=== PATIENT | female | born 1980 | race Caucasian/White ===

== ENCOUNTER 2017-05-25 20:47 | Emergency (ER) | payer MEDICAID ==
[~2017-05-25] VITALS: Ht 162.6 cm; Wt 68.0 kg
[2017-05-25] MEDS ORDERED: ONDANSETRON HCL 4MG/2ML VIAL IV STA (20:58)
[2017-05-25] MEDS ORDERED: SODIUM CHLORIDE 0.9% 1,000 ML IV ONE (20:58)
[2017-05-25] MEDS ORDERED: MECLIZINE 25MG TABLET PO ONE (21:00)
[2017-05-25 21:46] LABS: BASOPHILS % 0.6 % (0.0-2.0); EOSINOPHILS % 4.4 % (0.0-5.0); HEMATOCRIT. 39.5 % (36.0-48.0); LYMPHOCYTES % 29.1 % (20.0-50.0); MEAN CORPUSCULAR HEMOGLOBIN 31.8 pg (28.0-32.0); MEAN CORPUSCULAR VOLUME 89.6 fL (81.0-99.0); MEAN PLATELET VOLUME 8.3 fl (7.4-10.4); MONOCYTES % 5.3 % (2.0-8.0); NEUTROPHILS % 60.6 % (40.0-76.0); PLATELET 238 x1000/uL (130-400); RED BLOOD CELL COUNT 4.41 mill/uL (4.2-5.4); RED CELL DISTRIBUTION WIDTH 12.4 % (11.6-14.6)
[2017-05-25 21:49] LABS: CHLORIDE 108 mEq/L (98-107)
[2017-05-25 21:50] LABS: INR 1.1; PROTHROMBIN TIME 11.4 sec (9.4-11.6)
[2017-05-25 21:59] LABS: CARBON DIOXIDE 24 mEq/L (21-32); ETHANOL BLOOD < 10 mg/dL
[2017-05-25 23:02] LABS: CLARITY URINE CLEAR (CLEAR); COLOR URINE YELLOW (YELLOW); KETONES URINE NEGATIVE (NEGATIVE); LEUKOCYTE ESTERASE URINE 1+ (NEGATIVE); NITRITE URINE NEGATIVE (NEGATIVE); OCCULT BLOOD URINE NEGATIVE (NEGATIVE); PROTEIN URINE NEGATIVE (NEGATIVE); SPECIFIC GRAVITY URINE 1.013 (1.005-1.030)
[2017-05-25 23:10] LABS: *AMPHETAMINES SCREEN URINE NEGATIVE (NEGATIVE); *BARBITURATES SCREEN URINE NEGATIVE (NEGATIVE); *BENZODIAZEPINES SCREEN URINE NEGATIVE (NEGATIVE); *COCAINE SCREEN URINE NEGATIVE (NEGATIVE); CANNABINOID URINE SCREEN NEGATIVE (NEGATIVE); METHADONE URINE SCREEN NEGATIVE (NEGATIVE); OPIATES URINE SCREEN NEGATIVE (NEGATIVE); PHENCYCLIDINE URINE SCREEN NEGATIVE (NEGATIVE)
[2017-05-26 01:25] VITALS: BP 132/88
== END 2017-05-26 01:27 | disposition home or self-care (01) ==
LOC: ER 20:57
DX: G93.49 Other encephalopathy (principal); R42 Dizziness and giddiness; N30.00 Acute cystitis without hematuria; R03.0 Elevated blood-pressure reading, without diagnosis of hypertension; E78.00 Pure hypercholesterolemia, unspecified
CPT/HCPCS: 36415; 70450; 80053; 80305; 80307; 80329; 81001; 81025; 85025; 85610; 93005; 96361; 96374; 99285; G0482; J2405; J7030; Z7610; J8597

== ENCOUNTER 2018-08-17 13:18 | Emergency (ER) | payer MEDICAID ==
[~2018-08-17] VITALS: Ht 157.5 cm; Wt 66.0 kg
[2018-08-17] MEDS ORDERED: TETANUS, DIPHTHERIA, PERTUSSIS VAC/PF 0.5ML (>7YR OLD) IM ONE (18:00)
[2018-08-17] MEDS ORDERED: CEPHALEXIN 250MG CAPSULE PO ONE (18:15)
[2018-08-17] MEDS ORDERED: IBUPROFEN 600MG TABLET PO ONE (18:15)
[2018-08-17 19:51] VITALS: BP 126/79
== END 2018-08-17 19:53 | disposition home or self-care (01) ==
LOC: ER 14:06
DX: S61.411A Laceration without foreign body of right hand, initial encounter (principal); E78.00 Pure hypercholesterolemia, unspecified; W25.XXXA Contact with sharp glass, initial encounter; Y93.89 Activity, other specified; Y92.010 Kitchen of single-family (private) house as the place of occurrence of the external cause
CPT/HCPCS: 73130; 90471; 90715; 99283

== ENCOUNTER 2020-04-09 18:38 | Emergency (ER) | payer MEDICAID ==
[~2020-04-09] VITALS: Ht 157.5 cm; Wt 68.0 kg
[2020-04-09 22:50] LABS: BASOPHILS % 0.9 % (0.0-2.0); EOSINOPHILS % 5.3 % (0.0-5.0); HEMOGLOBIN. 14.3 g/dL (12.0-16.0); LYMPHOCYTES % 29.5 % (20.0-50.0); MEAN CORPUSCULAR HEMOGLOBIN 32.4 pg (28.0-32.0); MEAN CORPUSCULAR VOLUME 90.4 fL (81.0-99.0); MEAN PLATELET VOLUME 8.3 fl (7.4-10.4); MONOCYTES % 6.5 % (2.0-8.0); NEUTROPHILS % 57.8 % (40.0-76.0); PLATELET 233 x1000/uL (130-400); RED BLOOD CELL COUNT 4.42 mill/uL (4.2-5.4); RED CELL DISTRIBUTION WIDTH 12.7 % (11.6-14.6)
[2020-04-09 22:58] LABS: CHLORIDE 110 mEq/L (98-107)
[2020-04-09] MEDS ORDERED: KETOROLAC 30MG/ML VIAL IV ONE (23:00)
[2020-04-09 23:09] LABS: B-HCG QUANTITATIVE < 1 mIU/mL (<3)
[2020-04-09 23:22] LABS: CLARITY URINE CLEAR (CLEAR); COLOR URINE YELLOW (YELLOW); KETONES URINE NEGATIVE (NEGATIVE); LEUKOCYTE ESTERASE URINE 1+ (NEGATIVE); NITRITE URINE NEGATIVE (NEGATIVE); OCCULT BLOOD URINE 3+ (NEGATIVE); PROTEIN URINE NEGATIVE (NEGATIVE)
[2020-04-10 01:00] VITALS: BP 125/74
== END 2020-04-10 01:00 | disposition home or self-care (01) ==
LOC: ER 18:38
DX: N93.9 Abnormal uterine and vaginal bleeding, unspecified (principal); D25.9 Leiomyoma of uterus, unspecified; I49.9 Cardiac arrhythmia, unspecified
CPT/HCPCS: 36415; 76830; 76856; 80053; 81003; 81025; 84702; 85025; 86850; 86900; 86901; 93005; 96374; 99285; J1885

== ENCOUNTER 2022-08-18 22:45 | Emergency (ER) | payer MEDICAID ==
[~2022-08-18] VITALS: Ht 157.5 cm; Wt 66.0 kg
[2022-08-18] MEDS ORDERED: ONDANSETRON HCL 4MG/2ML INJ IV STA (23:03)
[2022-08-18] MEDS ORDERED: SODIUM CHLORIDE 0.9% 1,000 ML IV ONE (23:15)
[2022-08-18 23:55] LABS: BASOPHILS % 0.5 % (0.0-2.0); EOSINOPHILS % 3.9 % (0.0-5.0); HEMATOCRIT. 38.7 % (36.0-48.0); HEMOGLOBIN. 13.1 g/dL (12.0-16.0); LYMPHOCYTES % 19.6 % (20.0-50.0); MEAN CORPUSCULAR VOLUME 85.8 fL (81.0-99.0); MEAN PLATELET VOLUME 8.1 fl (7.4-10.4); MONOCYTES % 4.4 % (2.0-8.0); NEUTROPHILS % 71.6 % (40.0-76.0); PLATELET 253 x1000/uL (130-400); RED BLOOD CELL COUNT 4.51 mill/uL (4.2-5.4); RED CELL DISTRIBUTION WIDTH 16.1 % (11.6-14.6)
[2022-08-18 23:58] LABS: CHLORIDE 108 mEq/L (98-107)
[2022-08-19 00:05] LABS: HCG SCREEN NEGATIVE
[2022-08-19 00:09] LABS: ETHANOL BLOOD < 10 mg/dL
[2022-08-19] MEDS ORDERED: ONDANSETRON HCL 4MG/2ML INJ IV NR (01:15)
[2022-08-19 01:52] LABS: *AMPHETAMINES SCREEN URINE NEGATIVE (NEGATIVE); *BARBITURATES SCREEN URINE NEGATIVE (NEGATIVE); *BENZODIAZEPINES SCREEN URINE NEGATIVE (NEGATIVE); *COCAINE SCREEN URINE NEGATIVE (NEGATIVE); CANNABINOID URINE SCREEN NEGATIVE (NEGATIVE); METHADONE URINE SCREEN NEGATIVE (NEGATIVE); OPIATES URINE SCREEN NEGATIVE (NEGATIVE); PHENCYCLIDINE URINE SCREEN NEGATIVE (NEGATIVE)
[2022-08-19 02:55] VITALS: BP 114/69
== END 2022-08-19 03:11 | disposition home or self-care (01) ==
LOC: ER 22:45
DX: R11.2 Nausea with vomiting, unspecified (principal); E78.00 Pure hypercholesterolemia, unspecified
CPT/HCPCS: 36415; 71045; 80053; 80305; 80320; 81025; 83690; 83735; 83880; 84484; 84703; 85025; 93005; 96361; 96374; 99285; J2405; J7030; Z7610; G0480